=== PATIENT | female | born 1965 | race Caucasian/White ===

== ENCOUNTER 2021-06-15 07:06 | Emergency (ER) | payer SELFPAY ==
[~2021-06-15] VITALS: Ht 160 cm; Wt 59.0 kg
[2021-06-15] MEDS ORDERED: IV NORMAL SALINE 1,000ML 1,000 ML IV ONE (07:30)
[2021-06-15] MEDS ORDERED: ONDA4TAB12 PO (07:44)
[2021-06-15] MEDS ORDERED: ACETAMINOPHEN 325 MG TABLET PO ONE (07:45)
[2021-06-15] MEDS ORDERED: AZIT250T6 PO (07:47)
--- NOTE | 2021-06-15 07:48 | PHYS DOC ---
Past History Additional Past Medical Histor: TYPE II Past Surgical History: Hysterectomy Additional Past Surgical Histo: PARTIAL HYST, TUBAL General Adult EDM: Chief Complaint: GENERALIZED BODY ACHES HPI: HPI: 56-year-old female past medical history of tobacco dependence, presents the ED with complaints of fever, cough, body aches, nasal congestion, vomiting for the past 3 days and one episode of loose watery diarrhea in the past day. Reports she is tolerating water but is unable to keep any food down. Is not vaccinated for Covid. Is requesting a Covid test-work requires it to take sick time off. Review of Systems: Review of Systems: Constitutional: Denies lack of taste or smell Eyes: Denies change in visual acuity HENT: Denies rhinorrhea or sore throat Respiratory: Denies emesis or shortness of breath Cardiovascular: Denies chest pain or edema GI: Denies abdominal pain or bloody stools : Denies dysuria or hematuria Musculoskeletal: Denies back pain or joint pain Integument: Denies rash or diaphoresis Neurologic: Denies headache, nuchal rigidity, focal weakness or sensory changes Endocrine: Denies polyuria or polydipsia Lymphatic: Denies swollen glands Psychiatric: Denies depression or anxiety Current Medications: Current Meds: Current Medications Medications (Trade) Dose Ordered Sig/Angelica Start Time Stop Time Status Last Admin Dose Admin Acetaminophen (Tylenol) 650 mg 1X ONCE 06/15/21 07:45 06/15/21 07:46 UNV Sodium Chloride 1,000 ml @ 1,000 mls/hr 1X ONCE 06/15/21 07:30 06/15/21 07:39 DC Physical Exam: PE: Constitutional: Nontoxic appearing, febrile/flu-appearing/in house robe, HENT: Normocephalic, atraumatic, nasal/congestion Eyes: EOMI, conjunctiva normal, no discharge. Neck: Normal range of motion, supple, Cardiovascular: S1/2 present, regular rhythm Lungs & Thorax: Speaking in full sentences, bilateral equal chest rise, no tachypnea or increased work of breathing Abdomen: soft, no tenderness, Skin: Warm, dry, no erythema, no rash. [] Extremities: No tenderness, no cyanosis, no lower extremity edema Neurologic: Alert and oriented X 3, normal motor function, normal sensory function, no focal deficits noted. [] Psychologic: Affect normal, judgement normal, mood normal. [] Current Patient Data: Vital Signs: Vital Signs Date Time Temp Pulse Resp B/P (MAP) Pulse Ox O2 Delivery O2 Flow Rate FiO2 06/15/21 07:08 100.5 84 17 116/47 93 Room Air EKG: EKG: [] Radiology/Procedures: Radiology/Procedures: []IMAGING REPORT Signed PATIENT: JESSICA GANDARA ACCOUNT: [id number] : 1965 LOCATION: ER AGE: 56 SEX: F EXAM STATUS: REG ER ORD. PHYSICIAN: MYRANDA SHEPARD DO REASON: pui, fever, cough, chills PROCEDURE: CHEST AP ONLY XR CHEST 1V History: Reason: pui, fever, cough, chills / Spl. Instructions: / History: Comparison: None. Findings: Ill-defined right lower lobe opacities. No pleural effusion. No pneumothorax. Normal heart size. Impression: 1. Mild ill-defined right lower lobe opacities, may represent atelectasis or developing infiltrates including viral pneumonia. Electronically signed by: Familia Betts DO (06/15/2021 7:56 AM) [id number] DICTATED AND SIGNED BY: FAMILIA BETTS DO DATE: 06/15/21 0750 CC: PCP,NO; MYRANDA SHEPARD DO ~MTH0 0 Heart Score: C/O Chest Pain: No Risk Factors: Risk Factors: DM, Current or recent (<one month) smoker, HTN, HLP, family history of CAD, obesity. Risk Scores: Score 0 - 3: 2.5% MACE over next 6 weeks - Discharge Home Score 4 - 6: 20.3% MACE over next 6 weeks - Admit for Clinical Observation Score 7 - 10: 72.7% MACE over next 6 weeks - Early Invasive Strategies Course & Med Decision Making: Course & Med Decision Making Pertinent Labs and Imaging studies reviewed. (See chart for details) COVID-19 CRITERIA: The patient was evaluated during the global COVID-19 pandemic, and that diagnosis was suspected/considered upon their initial presentation. Their evaluation, treatment and testing was consistent with current guidelines for patients who present with complaints or symptoms that may be related to COVID-19. Concern for URI, covid test pending, cxr c/w community-acquired pneumonia. I offered labs/IVFs/antiemetics, pt declined stating she wished to go home and rest instead. Will rx abx and odt zofran--is tolerating liquid oral intake. Will discharge home with strict ED return precautions were given for strokelike symptoms, chest pain, increased work of breathing, hemoptysis or dehydration. Encouraged urgent outpatient follow-up with PMD for routine care and pulmonology regarding tobacco use. Life-threatening processes were considered but are low suspicion at this time, given history, physical exam and ED workup. Pt was educated on all prescription medications and adverse effects. All patient's questions were answered and pt was stable at time of discharge. Life/limb-threatening differential includes but is not limited to, airway emergency or respiratory distress/ARDS or fatigue or head or neck swelling, toxidrome, sepsis/shock, angioedema, anaphylaxis, congestive heart failure, myocarditis, acute myocardial infarction, dysrhythmias, cardiomyopathy, venous thromboembolism, pulmonary emboli, acute necrotizing hemorrhagic encephalopathy ,cerebral venous thrombosis, meningitis, encephalitis or CVA. I have spoken with the patient and/or caregivers. I explained the patient's condition, diagnoses and treatment plan based on the information available to me at this time. I have answered the patient and/or caregiver's questions and addressed any concerns. The patient and/or caregivers have a good understanding of patient's diagnosis, condition and treatment plan as can be expected at this point. Vital signs have been stable. Patient's condition is stable and appropriate for discharge from the emergency department. Patient will pursue further outpatient evaluation with primary care physician or other designated or consulting physician as outlined in the discharge instru ctions. The patient and/or caregivers are agreeable to this plan of care and follow-up instructions have been explained in detail. The patient and/or caregivers have received these instructions in written form and have expressed an understanding of the discharge instructions. The patient and/or caregivers are aware that any significant change of condition or worsening of symptoms should prompt immediate return to this or the closest emergency department or call to 911. Kannan Disclaimer: Kannan Disclaimer: This electronic medical record was generated, in whole or in part, using a voice recognition dictation system. Departure Departure: Impression: Primary Impression: Person under investigation for COVID-19 Additional Impressions: Fever URI (upper respiratory infection) Disposition: HOME / SELF CARE / HOMELESS Condition: STABLE Referrals: PCP,NO (PCP) Follow-up with your primary care physician in 24 to 48 hours OR FOLLOW UP WITH FAMILY [facility]: [address] [place] [address] Patient Instructions: Cough, Adult, Fever Additional Instructions: FOLLOW UP WITH PULMONOLOGY: FOR DEFINITIVE MANAGEMENT of tobacco use [facility] [address] [place] [address] Return to ED immediately if your oxygen level drops below 90% (purchase a pulse oximetry at a medical supply store), difficulties breathing including rapid breathing or increased work of breathing (skin sucking under ribs), chest pain or stroke-like symptoms (facial droop, speech changes, arm/leg weakness). You have been tested for or diagnosed with COVID-19. It is an infection caused by a new type of coronavirus. COVID-19 will cause cold-like or mild flu symptoms in most. It can cause more severe symptoms like problems breathing in some. There is no treatment for COVID-19. The body will clear the infection over time. Self-care will help to ease discomfort. Steps to Take: Self-Care Rest as needed. Healthy habits may help you feel better. Steps include: Choose healthy foods including fruits and vegetables. Drink water throughout the day. Get plenty of sleep each night. If you smoke, try to quit. It may ease breathing. Avoid alcohol. Keep Others Healthy The virus can spread to others. Droplets are released every time you sneeze or cough. The droplets can get into the mouth, nose, or eyes of people near you and lead to infection. To lower the chances of spreading COVID-19 to others: Stay at home until your doctor has said it is safe to leave. If you tested positive this will mean staying isolated until both of the following are true: At least 7 days have passed since the start of illness. You are free of fever for at least 72 hours without the use of medicine. During this time: - Avoid public areas, events, or transportation. Do not return to work or school until your doctor has said it is safe to do so. - Call ahead if you need to go to a medical center. Let them know you may have COVID-19. It will help them guide you where to go. They may also ask you to wear a facemask when you come to the office. - If you call for emergency medical services, let them know you may have COVID- 19. While at home: - Try to avoid close contact with others. Stay about 6 feet away. - If possible, spend most of your time in a separate room from others. - Use a face mask if you will be in close contact with others such as sharing a room or vehicle. - Have someone wipe down common surfaces in the home. Use household keypuncher every day on areas like doorknobs, counters, or sinks. - Cough or sneeze into a tissue. Throw the tissue away right after use. If a tissue is not available, cough or sneeze into your elbow. - Wash your hands often. Wash them after sneezing or coughing. Use soap and water and wash for at least 20 seconds. Alcohol based hand venetian blind cleaner and repairer can be used if soap and water is not available. - Do not prepare food for others. Avoid sharing personal items like forks, spoons, or toothbrushes. - Avoid close contact with pets while you are sick. There is no evidence of the virus passing to pets. This is a safety step until more is known about this virus. Isolation can be frustrating. Social interaction can help. Keep in touch with friends and family through phone and tech options. You can still interact with others in your home, just keep a safe distance of about 6 feet. Follow-up: Your doctors office will check in with you to see if there are any changes in your health. You may be asked to keep track of symptoms to share with them. They will also let you know when you are clear to be in public again. Problems to Look Out For: Contact your doctor if your recovery is not going as you expect. Get emergency care if you have problems such as: - Trouble breathing - Nonstop chest pain or pressure - Changes in awareness, confusion, or problems waking - Lips or face have bluish color - Worsening of symptoms If you think you have an emergency, call for emergency medical services right away. As taken from [employer] [facility] [employer] Azithromycin (AZITHROMYCIN TABLET) 250 Mg Tablet 1 PKG PO UD for lung nodule for 5 Days, #6 TAB 0 Refills 2 the first day followed by 1 for days 2-5 Prov: VOHS,MYRANDA M DO 06/15/21 Ondansetron (ONDANSETRON ODT) 4 Mg Tab.rapdis 4 MG PO Q6HRS for Nausea/Vomiting, #15 TAB Prov: MYRANDA SHEPARD DO 06/15/21 MYRANDA SHEPARD DO Jun 15, 2021 07:48
--- NOTE | 2021-06-15 07:58 | RAD ---
XR CHEST 1V History: Reason: pui, fever, cough, chills / Spl. Instructions: / History: Comparison: None. Findings: Ill-defined right lower lobe opacities. No pleural effusion. No pneumothorax. Normal heart size. Impression: 1. Mild ill-defined right lower lobe opacities, may represent atelectasis or developing infiltrates including viral pneumonia. Electronically signed by: Familia Betts DO (06/15/2021 7:56 AM) [id number]
[2021-06-15 07:59] VITALS: BP 127/60
--- NOTE | 2021-06-17 20:28 | NUR ---
Call to notify patient of POSITIVE COVID result. Pt is aware, feeling better. Will quarantine the full 14 days.
== END 2021-06-15 07:55 | disposition home or self-care (01) ==
LOC: ER 07:06
DX: U07.1 COVID-19 (principal); J06.9 Acute upper respiratory infection, unspecified; Z87.891 Personal history of nicotine dependence
CPT/HCPCS: 71045; 99284; C9803; U0003